=== PATIENT | male | born 1985 | race Caucasian/White ===

== ENCOUNTER → 2016-04-28 | Outpatient (REF) | payer OTHER | LOC: M LAB REF 16:46 | PROVIDERS: ATTEND Physician Assistant | DX: Z20.2 Contact with and (suspected) exposure to infections with a predominantly sexual mode of transmission (principal) ==

== ENCOUNTER → 2016-09-15 | Outpatient (CLI) | payer MEDICAID | LOC: M OUTALCOH 08:52 | PROVIDERS: ATTEND Psychiatry & Neurology Psychiatry | DX: F11.20 Opioid dependence, uncomplicated (principal); F14.20 Cocaine dependence, uncomplicated; F10.20 Alcohol dependence, uncomplicated ==

== ENCOUNTER 2016-10-20 16:00 | Outpatient (RCR) | payer MEDICAID | END 2016-10-27 | LOC: M OUTALCOH 16:00 | PROVIDERS: ATTEND Psychiatry & Neurology Psychiatry | DX: Z03.89 Encounter for observation for other suspected diseases and conditions ruled out (principal) ==

== ENCOUNTER 2018-01-05 10:08 | Day surgery (SDC) | payer OTHER ==
[2018-01-05] MEDS ORDERED: LR 1,000 ML IV ×3 (11:00→14:45)
[2018-01-05] MEDS ORDERED: ROCURONIUM BROMIDE 50 MG/5 ML VIAL As Ordered ×3 (11:16→13:43)
[2018-01-05] MEDS ORDERED: LIDOCAINE 2% INJ 100 MG/5 ML SDV (FOR ANES.) As Ordered (11:16)
[2018-01-05] MEDS ORDERED: PROPOFOL 200 MG/20 ML VIAL As Ordered (11:16)
[2018-01-05] MEDS ORDERED: MIDAZOLAM INJ 2 MG/2 ML VIAL (J2250) As Ordered (11:16)
[2018-01-05] MEDS ORDERED: ONDANSETRON 4MG/2ML VIAL (J2405) As Ordered ×2 (11:16→14:41)
[2018-01-05] MEDS ORDERED: fentaNYL 250 MCG/5 ML INJECTION (J3010) As Ordered (11:16)
[2018-01-05] MEDS ORDERED: dexameTHASONE 4 MG/ML 1ML VIAL (J1100) As Ordered (11:16)
[2018-01-05] MEDS ORDERED: fentaNYL 100 MCG/2 ML INJECTION (J3010) As Ordered (13:47)
[2018-01-05] MEDS: LIDOCAINE W/EPINEPHRINE 1% 20ML VIAL As Ordered (14:15)
[2018-01-05] MEDS: BACITRACIN OINT 30GM As Ordered (14:19)
[2018-01-05] MEDS ORDERED: PERCOCET 5MG/325MG TAB As Ordered (14:41)
[2018-01-05] MEDS ORDERED: ACETAMINOPH W/CODEINE #3 TAB UD PO (14:45)
[2018-01-05] MEDS ORDERED: METOCLOPRAMIDE INJ 10MG/2ML VIAL (J2765) IV (14:45)
[2018-01-05] MEDS: PERCOCET 5MG/325MG TAB PO ×2 (14:50→15:18)
[2018-01-05] MEDS: ONDANSETRON 4MG/2ML VIAL (J2405) IV (15:00)
[2018-01-05] MEDS: HYDROMORPHONE HCL 0.5 MG/ 0.5 ML SYRINGE (J1170 PER 1) IV (15:30)
== END 2018-01-05 16:51 | disposition home or self-care (01) ==
LOC: M SDC 10:08
DX: K11.8 Other diseases of salivary glands (principal); Z72.0 Tobacco use
CPT/HCPCS: 42815

== ENCOUNTER → 2018-12-01 | Outpatient (CLI) | payer MEDICAID, SELFPAY ==
[~2018-12-01] MED LIST: MULTCAP PO
== END ==
LOC: M OUTALCOH 08:02
PROVIDERS: ATTEND Psychiatry & Neurology Psychiatry
DX: Z03.89 Encounter for observation for other suspected diseases and conditions ruled out (principal)

== ENCOUNTER 2019-01-26 16:00 | Outpatient (RCR) | payer MEDICAID, SELFPAY | END 2019-01-27 | LOC: M OUTALCOH 16:00 | PROVIDERS: ATTEND Psychiatry & Neurology Psychiatry | DX: F10.10 Alcohol abuse, uncomplicated (principal) ==

== ENCOUNTER 2019-02-23 13:59 | Outpatient (RCR) | payer MEDICAID | END 2019-02-26 | LOC: M OUTALCOH 13:59 | PROVIDERS: ATTEND Psychiatry & Neurology Psychiatry | DX: F10.10 Alcohol abuse, uncomplicated (principal) ==

== ENCOUNTER 2019-03-09 15:00 | Outpatient (RCR) | payer OTHER | END 2019-03-29 | LOC: M OUTALCOH 15:00 | PROVIDERS: ATTEND Psychiatry & Neurology Psychiatry | DX: F10.10 Alcohol abuse, uncomplicated (principal) ==